=== PATIENT | male | born 1985 | race Caucasian/White ===

== ENCOUNTER 2019-08-01 10:36 | Emergency (ER) | payer OTHER ==
[~2019-08-01] VITALS: Ht 170.2 cm; Wt 72.6 kg
[2019-08-01 10:41] VITALS: BP 114/94
--- NOTE | 2019-08-01 10:44 | NUR ---
PATIENT AMBULATED TO BED 7.
--- NOTE | 2019-08-01 10:52 | NUR ---
33 Y/O MALE C/O LOWER BACK PAIN X 30 MIN. PT STATES HE WAS BUILDING PALLETS APPROX 30 LBS WHEN PAIN BEGAN. 10/10 CONSTANT PRESSURE TO LOWER BACK. FELT SOB WHEN INJURY OCCURED, DENIES SOB AT THIS TIME. STATES PAIN DOES NOT RADIATE. RR EVEN AND UNLABORED. VSS MEDHX: DENIES ALLERGIES: NKA
--- NOTE | 2019-08-01 10:56 | NUR ---
DR GONZALEZ AT BEDSIDE EXAMINING PT
[2019-08-01] MEDS ORDERED: HYDROcodone/APAP 5/325 MG 1 TAB TAB PO ONE (11:05)
[2019-08-01] MEDS ORDERED: ONDANSETRON 4 MG ODT PO ONE (11:05)
[2019-08-01] MEDS ORDERED: KETOROLAC 30 MG/ML VIAL IM ONE (11:05)
--- NOTE | 2019-08-01 11:52 | NUR ---
STATES DECREASE IN PAIN, 10. PT PACING IN ROOM, EATING SNACK. RR EVEN AND UNLABORED. WILL CONTINUE TO MONITOR
[2019-08-01 12:02] VITALS: BP 114/94
--- NOTE | 2019-08-01 12:02 | NUR ---
Patient discharged with v/s stable. Written and verbal after care instructions given and explained. Patient alert, oriented and verbalized understanding of instructions. Ambulatory with steady gait. All questions addressed prior to discharge. ID band removed. Patient advised to follow up with PMD. Rx of VALIUM, NORCO, ZOFRAN, IBUPROFEN given. Patient educated on indication of medication including possible reaction and side effects. Opportunity to ask questions provided and answered.
== END 2019-08-01 12:02 | disposition home or self-care (01) ==
LOC: MED 10:36
DX: S39.012A Strain of muscle, fascia and tendon of lower back, initial encounter (principal); X58.XXXA Exposure to other specified factors, initial encounter; Y93.89 Activity, other specified; Y92.89 Other specified places as the place of occurrence of the external cause; Y99.8 Other external cause status
CPT/HCPCS: 96372; 99283; J1885; Q0162